=== PATIENT | male | born 1965 | race African-American/Black ===

== ENCOUNTER 2017-04-29 18:19 | Emergency (ER) | payer SELFPAY ==
[~2017-04-29] VITALS: Ht 185.4 cm; Wt 78.5 kg
[2017-04-29] MEDS ORDERED: UNOBMED (18:24)
[2017-04-29 19:15] VITALS: BP 140/78
--- NOTE | 2017-04-29 19:31 | Emergency Room Report ---
History of Present Illness General Chief Complaint: Altered Level of Consciousness Source: Patient, EMS Present Illness HPI This patient is a homeless male. He is brought in from the street. He is refusing to talk or give his name. However, when asked him if he wanted a sandwich and he shook his head yes. When I asked if this is all he needed, he shook his head yes. I asked if he has any complaints and he shook his head no. He is well appearing overall. He does not want to be bothered. Allergies: Coded Allergies: UNABLE TO ASSESS (Unverified , 04/29/17) Patient History Past Medical History: unable to obtain Past Surgical History: unable to obtain Pertinent Family History: unable to obtain Social History: Reports: alcohol use Reviewed Nursing Documentation: PMH: Agreed, PSxH: Agreed Nursing Documentation-PMH Past Medical History Deferred: Pt Cognitively Impaired Review of Systems All Other Systems: limited Physical Exam Vital Signs Date Time Temp Pulse Resp B/P (MAP) Pulse Ox O2 Delivery O2 Flow Rate FiO2 04/29/17 18:21 98.4 92 17 133/82 99 Room Air Sp02 EP Interpretation: reviewed, normal General Appearance: no apparent distress, alert, GCS 15, non-toxic Head: normocephalic, atraumatic Eyes: bilateral eye normal inspection, bilateral eye PERRL ENT: hearing grossly normal, normal pharynx, no angioedema, normal voice Neck: full range of motion, supple/symm/no masses Respiratory: chest non-tender, lungs clear, normal breath sounds Cardiovascular #1: regular rate, rhythm, no edema Gastrointestinal: normal bowel sounds, non tender, soft, non-distended, no guarding, no rebound Rectal: deferred Musculoskeletal: back normal, gait/station normal, normal range of motion, non- tender Neurologic: alert, oriented x3, responsive, motor strength/tone normal, sensory intact, other - Nonfocal Psychiatric: judgement/insight normal, memory normal, mood/affect normal, no suicidal/homicidal ideation Skin: normal color, no rash, warm/dry, well hydrated Medical Decision Making Diagnostic Impression: Primary Impression: Homeless ER Course This is a homeless male. He refuses to speak. His medical screening exam is benign. He shakes his head yes and answers no appropriately when asked questions such as "would you like a sandwich." This patient has normal vital signs and a normal medical screening exam. Initially he had a heart rate of 103. However, on telemetry he had a heart rate in the 80s. He is normotensive. He is nontoxic, eating a sandwich and well-appearing. He is discharged. He was given the local custodial resources. EKG Diagnostic Results Rate: tachycardiac Rhythm: other - 103 ST Segments: no acute changes Rhythm Strip Diag. Results EP Interpretation: yes Rate: 80s Rhythm: NSR, no PVC's, no ectopy Last Vital Signs Date Time Temp Pulse Resp B/P (MAP) Pulse Ox O2 Delivery O2 Flow Rate FiO2 04/29/17 18:21 98.4 92 17 133/82 99 Room Air Disposition: HOME, SELF-CARE Condition: Stable CLAUDY CASE D.O. Apr 29, 2017 19:31
[2017-04-29 20:30] VITALS: BP 139/80
== END 2017-04-29 20:30 | disposition home or self-care (01) ==
LOC: EDBD 18:19 → EMR 19:25
DX: R41.82 Altered mental status, unspecified (principal); Z59.0 Homelessness
CPT/HCPCS: 99282